=== PATIENT | female | born 1960 | race Two or more races ===

== ENCOUNTER 2024-08-30 09:47 | Emergency (ER) | payer OTHER ==
[2024-08-30 09:56] VITALS: BP 144/75; PULSE 72; RESP 16; TEMP 98.6; BMI 28.8
[2024-08-30] MEDS ORDERED: KETOROLAC TROMETHAMINE 30 MG/1 ML VIAL ONE (11:05)
[2024-08-30] MEDS ORDERED: ACETAMINOPHEN 500 MG TABLET (FP) ONE (11:05)
[2024-08-30] MEDS: ACETAMINOPHEN 500 MG TABLET (FP) PO ONE (11:25)
[2024-08-30] MEDS: KETOROLAC TROMETHAMINE 30 MG/1 ML VIAL IM ONE (11:25)
== END 2024-08-30 13:17 | disposition home or self-care (01) ==
LOC: JERFT 09:47
PROC: 3E0233Z Introduction of Anti-inflammatory into Muscle, Percutaneous Approach (ICD-10-PCS; principal; 2024-08-30)
DX: M25.511 Pain in right shoulder (principal)
CPT/HCPCS: 73030-TC-RT-FY; 99284-25